=== PATIENT | male | born 1995 | race Caucasian/White ===

== ENCOUNTER 2023-07-06 02:27 | Inpatient (IN) | payer OTHER ==
[2023-07-06] VITALS (7 sets, daily range): BP systolic 127; BP diastolic 72; PULSE 88; RESP 16; TEMP 97.4; O2SAT 98–99
[~2023-07-06] VITALS: Ht 180.3 cm; Wt 230.4 kg
[2023-07-06 03:27] LABS: BASOPHILS % (AUTO) 0.4 % (0.0-2.0); EOSINOPHILS # (AUTO) 0.5 K/uL (0-0.4); EOSINOPHILS % (AUTO) 4.5 % (0.0-4.0); HEMATOCRIT 38.2 % (36-52); HEMOGLOBIN 12.5 g/dL (12.0-18.0); LYMPHOCYTES # (AUTO) 2.1 K/uL (2.0-11.5); MEAN CORPUSCULAR HEMOGLOBIN 28 pg (27-31); MEAN CORPUSCULAR HGB CONC 33 g/dL (33-37); MONOCYTES # (AUTO) 0.7 K/uL (0.8-1.0); MONOCYTES % (AUTO) 7.3 % (1.7-9.3); NEUTROPHILS # (AUTO) 6.8 K/uL (1.8-7.7); NEUTROPHILS % (AUTO) 66.8 % (42.2-75.2); PLATELET COUNT (AUTO) 294 K/uL (140-450); RED BLOOD CELL COUNT(AUTO) 4.55 MIL/uL (4.20-6.10); WHITE BLOOD COUNT (AUTO) 10.1 K/uL (4.8-10.8)
[2023-07-06 03:34] LABS: ANION GAP 12.6 (8-16); CALCIUM 8.2 mg/dL (8.5-10.1); CARBON DIOXIDE 26.3 mmol/L (21-32); CREATININE 0.8 mg/dL (0.6-1.3); POTASSIUM 3.9 mmol/L (3.5-5.1)
[2023-07-06 14:31] LABS: AMPHETAMINE, URINE NEGATIVE ng/ml (NEG <=1000); BARBITURATE, URINE NEGATIVE ng/ml (NEG <=200)
[2023-07-06 14:32] LABS: BENZODIAZEPINE, URINE NEGATIVE ng/mL (NEG <=200); CANNABINOID, URINE NEGATIVE ng/mL (NEG <=50); COCAINE, URINE NEGATIVE ng/mL (NEG <=300); OPIATE, URINE NEGATIVE ng/mL (NEG <=2000); PHENCYCLIDINE SCREEN,URINE NEGATIVE ng/mL (NEG <=25)
[2023-07-06 14:35] LABS: SALICYLATE < 2.8 mg/dL (2.8-20.0)
[2023-07-06 14:36] LABS: ACETAMINOPHEN < 0.5 ug/ml (10-30); ALCOHOL, BLOOD < 3 mg/dL (<10)
[2023-07-06] MEDS ORDERED: ARIPiprazole 10 MG TAB PO SCH (19:40)
[2023-07-06] MEDS ORDERED: CRUSHER, PILL MC ONE (19:53)
[2023-07-07] VITALS (8 sets, daily range): PULSE 75–83; O2SAT 96–99
[2023-07-07] MEDS ORDERED: ARIP5TAB8 PO (13:54)
[2023-07-07] MEDS ORDERED: RISP2TAB75 PO (13:56)
[2023-07-07] MEDS ORDERED: QUET100T PO (13:56)
[2023-07-07] MEDS ORDERED: SERT100T PO (13:57)
[2023-07-07] MEDS ORDERED: TOP100 PO (13:58)
[2023-07-07] MEDS: QUEtiapine FUMARATE 100 MG TAB PO SCH (17:18)
[2023-07-07] MEDS ORDERED: TOPIRAMATE 25 MG TAB PO SCH (21:00)
[2023-07-07] MEDS: ARIPiprazole 10 MG TAB PO SCH (22:07)
[2023-07-07 23:30] LABS: BLOOD GAS BASE EXCESS 1.8 mmol/L (-2.0-2.0); BLOOD GAS PCO2 44.2 mmHg (35-45); BLOOD GAS PH 7.403 (7.35-7.45)
[2023-07-07 23:31] LABS: BLOOD GAS O2 SAT% 96.2 % (92.0-98.5)
[2023-07-07 23:53] LABS: BASOPHILS # (AUTO) 0.1 K/uL (0.00-0.22); BASOPHILS % (AUTO) 0.6 % (0.0-2.0); EOSINOPHILS # (AUTO) 0.2 K/uL (0-0.4); EOSINOPHILS % (AUTO) 2.2 % (0.0-4.0); HEMATOCRIT 37.9 % (36-52); HEMOGLOBIN 12.4 g/dL (12.0-18.0); LYMPHOCYTES # (AUTO) 2.6 K/uL (2.0-11.5); LYMPHOCYTES % (AUTO) 23.2 % (20.5-51.1); MEAN CORPUSCULAR HEMOGLOBIN 27 pg (27-31); MEAN CORPUSCULAR HGB CONC 33 g/dL (33-37); MEAN CORPUSCULAR VOLUME 82.7 fL (80-94); MONOCYTES % (AUTO) 8.5 % (1.7-9.3); NEUTROPHILS # (AUTO) 7.5 K/uL (1.8-7.7); NEUTROPHILS % (AUTO) 65.5 % (42.2-75.2); PLATELET COUNT (AUTO) 283 K/uL (140-450); RED BLOOD CELL COUNT(AUTO) 4.58 MIL/uL (4.20-6.10); RED CELL DISTRIBUTION WIDTH 16.5 % (11.6-13.7); WHITE BLOOD COUNT (AUTO) 11.4 K/uL (4.8-10.8)
[2023-07-08 00:05] LABS: ANION GAP 13.4 (8-16); CALCIUM 8.4 mg/dL (8.5-10.1); CARBON DIOXIDE 25.3 mmol/L (21-32); CREATININE 0.6 mg/dL (0.6-1.3); POTASSIUM 3.7 mmol/L (3.5-5.1)
[2023-07-08 01:02] VITALS: PULSE 87; O2SAT 97
[2023-07-08 03:13] LABS: APPEARANCE,URINE CLEAR (CLEAR); BILIRUBIN,URINE NEGATIVE (NEGATIVE); BLOOD, URINE NEGATIVE (NEGATIVE); COLOR,URINE YELLOW (YELLOW); LEUKOCYTE ESTERASE ,URINE NEGATIVE (NEGATIVE); NITRITE, URINE NEGATIVE (NEGATIVE); PH,URINE 6.5 (5.0-9.0); PROTEIN,URINE NEGATIVE (NEGATIVE); UGLUCOSE NEGATIVE (NEGATIVE); UROBILINOGEN,URINE 0.2 EU/dL (0.2 - 1)
[2023-07-08 08:00] VITALS: O2SAT 97
[2023-07-08] MEDS: ARIPiprazole 10 MG TAB PO SCH ×2 (09:00→20:23)
[2023-07-08] MEDS: SERTRALINE 50 MG TAB PO SCH (09:01)
[2023-07-08] MEDS: QUEtiapine FUMARATE 100 MG TAB PO SCH ×3 (09:02→17:00)
[2023-07-08] MEDS: TOPIRAMATE 100 MG TAB PO SCH ×2 (09:26→20:26)
[2023-07-08] MEDS ORDERED: CRUSHER, PILL MC ONE ×3 (09:30→20:16)
[2023-07-08] MEDS ORDERED: LORazepam 2 MG/ML VIAL IM PRN (09:45)
[2023-07-08] MEDS ORDERED: HALOPERIDOL IM 5 MG/ML VIAL IM PRN (09:45)
[2023-07-08] MEDS ORDERED: LORazepam 1 MG TAB ONE (11:35)
[2023-07-08] MEDS ORDERED: LORazepam 1 MG TAB PO ONE (11:35)
[2023-07-08] MEDS ORDERED: diphenhydrAMINE 50 MG CAP PO ONE ×2 (11:35→11:36)
[2023-07-08] MEDS ORDERED: KETOROLAC 60 MG/2 ML VIAL IM ONE ×2 (15:04→15:05)
[2023-07-08] MEDS ORDERED: LORazepam 2 MG/ML VIAL IVP PRN (17:35)
[2023-07-08] MEDS ORDERED: MORPHINE SULFATE 2 MG/ML SYR IVP PRN (17:35)
[2023-07-08] MEDS ORDERED: ONDANSETRON 4 MG/2 ML VIAL IVP PRN (17:35)
[2023-07-08 19:35] VITALS: O2SAT 97
[2023-07-08 22:30] VITALS: O2SAT 97
[2023-07-09] VITALS (9 sets, daily range): BP systolic 113–152; BP diastolic 53–78; PULSE 76–87; RESP 12–20; TEMP 96.7–97.1; O2SAT 95–98
[2023-07-09 08:44] LABS: BASOPHILS % (AUTO) 0.2 % (0.0-2.0); EOSINOPHILS # (AUTO) 0.3 K/uL (0-0.4); EOSINOPHILS % (AUTO) 2.6 % (0.0-4.0); HEMATOCRIT 37.1 % (36-52); HEMOGLOBIN 12.2 g/dL (12.0-18.0); LYMPHOCYTES # (AUTO) 2.1 K/uL (2.0-11.5); LYMPHOCYTES % (AUTO) 20.2 % (20.5-51.1); MEAN CORPUSCULAR HEMOGLOBIN 27 pg (27-31); MEAN CORPUSCULAR HGB CONC 33 g/dL (33-37); MEAN CORPUSCULAR VOLUME 83.2 fL (80-94); MONOCYTES # (AUTO) 0.8 K/uL (0.8-1.0); MONOCYTES % (AUTO) 7.7 % (1.7-9.3); NEUTROPHILS # (AUTO) 7.1 K/uL (1.8-7.7); NEUTROPHILS % (AUTO) 69.3 % (42.2-75.2); PLATELET COUNT (AUTO) 275 K/uL (140-450); RED BLOOD CELL COUNT(AUTO) 4.46 MIL/uL (4.20-6.10); RED CELL DISTRIBUTION WIDTH 15.9 % (11.6-13.7); WHITE BLOOD COUNT (AUTO) 10.3 K/uL (4.8-10.8)
[2023-07-09 09:03] LABS: ALBUMIN 2.6 g/dL (3.4-5.0); ANION GAP 11.3 (8-16); CALCIUM 8.2 mg/dL (8.5-10.1); CARBON DIOXIDE 27.5 mmol/L (21-32); CREATININE 0.7 mg/dL (0.6-1.3); POTASSIUM 3.8 mmol/L (3.5-5.1); TOTAL BILIRUBIN 0.2 mg/dL (0.0-1.0); TOTAL PROTEIN, SERUM 7.7 g/dL (6.4-8.2)
[2023-07-09] MEDS: ARIPiprazole 10 MG TAB PO SCH ×2 (09:50→20:21)
[2023-07-09] MEDS: QUEtiapine FUMARATE 100 MG TAB PO SCH ×3 (09:51→17:24)
[2023-07-09] MEDS: TOPIRAMATE 100 MG TAB PO SCH ×2 (09:51→20:22)
[2023-07-09] MEDS: SERTRALINE 50 MG TAB PO SCH (09:52)
[2023-07-09] MEDS ORDERED: Z-GUARD PASTE TP ONE (10:35)
[2023-07-09] MEDS ORDERED: Z-GUARD PASTE TP SCH (11:00)
[2023-07-10 04:00] VITALS: BP 143/78; PULSE 80; RESP 17; TEMP 97.5; O2SAT 94
[2023-07-10 08:00] VITALS: BP 137/69; PULSE 72; RESP 20; TEMP 97; O2SAT 95; O2SAT 98
[2023-07-10] MEDS: ARIPiprazole 10 MG TAB PO SCH ×2 (08:42→21:09)
[2023-07-10] MEDS: TOPIRAMATE 100 MG TAB PO SCH ×2 (08:43→21:09)
[2023-07-10] MEDS: SERTRALINE 50 MG TAB PO SCH (08:43)
[2023-07-10] MEDS: QUEtiapine FUMARATE 100 MG TAB PO SCH ×3 (08:49→16:55)
[2023-07-10 12:00] VITALS: BP 137/69; PULSE 72; RESP 20; TEMP 97; O2SAT 95
[2023-07-10 16:00] VITALS: BP 138/73; PULSE 80; RESP 20; TEMP 97.3; O2SAT 98
[2023-07-10 20:00] VITALS: BP 134/66; PULSE 74; PULSE 88; RESP 18; TEMP 97.2; O2SAT 98
[2023-07-10] MEDS ORDERED: CRUSHER, PILL MC ONE (21:12)
[2023-07-10 23:40] VITALS: PULSE 88; O2SAT 98
[2023-07-11 04:00] VITALS: BP 120/66; PULSE 77; RESP 18; TEMP 97.1; TEMP 97.6; O2SAT 97
[2023-07-11 07:50] VITALS: O2SAT 97
[2023-07-11 08:00] VITALS: PULSE 94; RESP 20; O2SAT 98
[2023-07-11] MEDS: SERTRALINE 50 MG TAB PO SCH (09:10)
[2023-07-11] MEDS: TOPIRAMATE 100 MG TAB PO SCH ×2 (09:10→21:02)
[2023-07-11] MEDS: ARIPiprazole 10 MG TAB PO SCH ×2 (09:11→21:02)
[2023-07-11] MEDS: QUEtiapine FUMARATE 100 MG TAB PO SCH ×3 (09:12→16:16)
[2023-07-11 09:58] VITALS: BP 145/85; PULSE 94; RESP 20; TEMP 96.7
[2023-07-11 20:00] VITALS: BP 124/76; PULSE 91; RESP 18; TEMP 96.6; O2SAT 98
[2023-07-11] MEDS: ACETAMINOPHEN 325 MG TAB PO PRN (22:44)
[2023-07-12 04:00] VITALS: BP 112/64; PULSE 90; RESP 18; TEMP 96.3; O2SAT 94
[2023-07-12 08:00] VITALS: BP 110/57; PULSE 73; RESP 20; TEMP 96.9; O2SAT 97
[2023-07-12] MEDS: QUEtiapine FUMARATE 100 MG TAB PO SCH ×3 (08:27→17:54)
[2023-07-12] MEDS: SERTRALINE 50 MG TAB PO SCH (08:28)
[2023-07-12] MEDS: ARIPiprazole 10 MG TAB PO SCH ×2 (08:28→20:27)
[2023-07-12] MEDS: TOPIRAMATE 100 MG TAB PO SCH ×2 (08:28→20:27)
[2023-07-12 16:00] VITALS: BP 123/75; PULSE 78; RESP 20; TEMP 97.3; O2SAT 99
[2023-07-12 19:05] VITALS: O2SAT 97
[2023-07-12 20:00] VITALS: BP 100/46; PULSE 82; RESP 16; TEMP 98.1; O2SAT 97
[2023-07-13 04:01] VITALS: BP 114/42; PULSE 64; RESP 18; TEMP 97.9; O2SAT 96
[2023-07-13 08:00] VITALS: BP 121/79; PULSE 90; RESP 20; TEMP 97.1; O2SAT 95
[2023-07-13 08:16] VITALS: O2SAT 99
[2023-07-13] MEDS: TOPIRAMATE 100 MG TAB PO SCH ×2 (08:25→20:27)
[2023-07-13] MEDS: SERTRALINE 50 MG TAB PO SCH (08:27)
[2023-07-13] MEDS: QUEtiapine FUMARATE 100 MG TAB PO SCH ×3 (08:28→17:41)
[2023-07-13] MEDS: ARIPiprazole 10 MG TAB PO SCH ×2 (08:28→20:27)
[2023-07-13 16:00] VITALS: BP 133/85; PULSE 78; RESP 20; TEMP 97; O2SAT 94
[2023-07-13 20:00] VITALS: BP 149/71; PULSE 83; RESP 18; TEMP 96.6; O2SAT 99
[2023-07-14 04:00] VITALS: BP 116/62; PULSE 65; RESP 18; TEMP 97.4; O2SAT 99
[2023-07-14] MEDS: ARIPiprazole 10 MG TAB PO SCH ×2 (08:32→20:17)
[2023-07-14] MEDS: SERTRALINE 50 MG TAB PO SCH (08:32)
[2023-07-14] MEDS: QUEtiapine FUMARATE 100 MG TAB PO SCH ×3 (08:33→16:49)
[2023-07-14] MEDS: TOPIRAMATE 100 MG TAB PO SCH ×2 (08:33→20:18)
[2023-07-14 09:03] VITALS: BP 122/80; PULSE 82; PULSE 84; RESP 18; TEMP 96.8; O2SAT 100
[2023-07-14 16:03] VITALS: BP 140/90; PULSE 84; RESP 18; TEMP 96.8; O2SAT 96
[2023-07-14 20:00] VITALS: BP 142/77; PULSE 87; RESP 18; TEMP 97; O2SAT 98
[2023-07-15] VITALS (7 sets, daily range): BP systolic 120–130; BP diastolic 68–81; PULSE 82–99; RESP 18; TEMP 96.7–98.1; O2SAT 92–100
[2023-07-15] MEDS: TOPIRAMATE 100 MG TAB PO SCH ×2 (08:24→20:32)
[2023-07-15] MEDS: ARIPiprazole 10 MG TAB PO SCH ×2 (08:24→20:26)
[2023-07-15] MEDS: QUEtiapine FUMARATE 100 MG TAB PO SCH ×3 (08:25→16:03)
[2023-07-15] MEDS: SERTRALINE 50 MG TAB PO SCH (08:25)
[2023-07-15] MEDS ORDERED: CRUSHER, PILL MC ONE (20:29)
[2023-07-16] VITALS (8 sets, daily range): BP systolic 141–148; BP diastolic 62–87; PULSE 63–94; RESP 17–20; TEMP 97–98.8; O2SAT 94–97
[2023-07-16] MEDS: SERTRALINE 50 MG TAB PO SCH (09:05)
[2023-07-16] MEDS: QUEtiapine FUMARATE 100 MG TAB PO SCH ×4 (09:05→18:04)
[2023-07-16] MEDS: ARIPiprazole 10 MG TAB PO SCH ×2 (09:05→20:02)
[2023-07-16] MEDS: TOPIRAMATE 100 MG TAB PO SCH ×2 (09:05→20:02)
[2023-07-16] MEDS: ACETAMINOPHEN 325 MG TAB PO PRN (22:00)
[2023-07-17 04:00] VITALS: BP 128/66; PULSE 81; RESP 18; TEMP 97.3; O2SAT 95
[2023-07-17 08:00] VITALS: PULSE 78; RESP 20; O2SAT 96
[2023-07-17] MEDS: ARIPiprazole 10 MG TAB PO SCH ×2 (08:58→21:24)
[2023-07-17] MEDS: QUEtiapine FUMARATE 100 MG TAB PO SCH ×2 (08:58→17:50)
[2023-07-17] MEDS: TOPIRAMATE 100 MG TAB PO SCH ×2 (08:59→21:25)
[2023-07-17] MEDS: SERTRALINE 50 MG TAB PO SCH (08:59)
[2023-07-17 12:40] VITALS: BP 112/55; PULSE 78; RESP 20; TEMP 96.8; O2SAT 98
[2023-07-17 19:41] VITALS: O2SAT 96
[2023-07-17 20:00] VITALS: BP 110/61; PULSE 78; RESP 16; TEMP 97.4; O2SAT 100
[2023-07-18 01:45] VITALS: PULSE 85; O2SAT 95
[2023-07-18 05:34] VITALS: PULSE 88; O2SAT 94
[2023-07-18 08:00] VITALS: BP 110/61; PULSE 68; PULSE 82; RESP 16; RESP 19; TEMP 97.2; O2SAT 100; O2SAT 99
[2023-07-18 08:20] VITALS: PULSE 74; RESP 20; O2SAT 97
[2023-07-18] MEDS ORDERED: ABI10 PO (09:15)
[2023-07-18] MEDS ORDERED: TOP100 PO (09:15)
[2023-07-18] MEDS ORDERED: SERT-515 PO (09:15)
[2023-07-18] MEDS ORDERED: QUET100T44 PO (09:15)
[2023-07-18 09:42] VITALS: BP 125/78; PULSE 68; RESP 20; TEMP 97.1
== END 2023-07-18 10:00 | DRG 203 ==
LOC: MED 02:27 → MMU 07-08 17:36 → MTU 07-09 06:15
PROVIDERS: ADMIT Hospitalist; ATTEND Hospitalist
DX: R07.9 Chest pain, unspecified (principal); E43 Unspecified severe protein-calorie malnutrition; R45.851 Suicidal ideations; Z68.45 Body mass index [BMI] 70 or greater, adult; Z20.822 Contact with and (suspected) exposure to COVID-19; F39 Unspecified mood [affective] disorder; E66.01 Morbid (severe) obesity due to excess calories; F32.A Depression, unspecified; Z79.899 Other long term (current) drug therapy
CPT/HCPCS: 36415; 36600; 71045; 80048; 80053; 80305; 81003; 82803; 83735; 83880; 85025; 87081; 87635-QW; 94660; 96372; 99285; C9803; G0480; G0482; J1630; J1885; Q0163